=== PATIENT | female | born 1990 | race Caucasian/White ===

== ENCOUNTER 2021-07-26 16:58 | Inpatient (IN) | payer OTHER, BC ==
[~2021-07-26] VITALS: Ht 172.7 cm; Wt 101.2 kg
[2021-07-26 17:54] LABS: RED BLOOD COUNT 3.95 M/UL (4.00-5.10); WHITE BLOOD COUNT 9.8 K/UL (4.5-11.0)
[2021-07-26] MEDS ORDERED: OMEPRAZOLE40 MG PO (17:56)
[2021-07-28] MEDS ORDERED: DOCUSATE SODIU100 MG PO (08:13)
[2021-07-28] MEDS ORDERED: IBUPROFEN800 MG PO (08:13)
== END 2021-07-29 14:52 | disposition home or self-care (01) | DRG 807 ==
LOC: GENOP 16:58 → OB 17:14
PROVIDERS: ADMIT Obstetrics & Gynecology
PROC: 4A1HXCZ Monitoring of Products of Conception, Cardiac Rate, External Approach (ICD-10-PCS; 2021-07-26)
PROC: 10E0XZZ Delivery of Products of Conception, External Approach (ICD-10-PCS; principal; 2021-07-28)
PROC: 0KQM0ZZ Repair Perineum Muscle, Open Approach (ICD-10-PCS; 2021-07-28)
PROC: 10907ZC Drainage of Amniotic Fluid, Therapeutic from Products of Conception, Via Natural or Artificial Opening (ICD-10-PCS; 2021-07-28)
DX: O13.4 Gestational [pregnancy-induced] hypertension without significant proteinuria, complicating childbirth (principal); Z37.0 Single live birth; Z3A.39 39 weeks gestation of pregnancy; O70.1 Second degree perineal laceration during delivery
CPT/HCPCS: 51702; 81001; 82800; 85014; 85018; 85025; 90715; C9113; J0595; J2405; J2590; J7120; U0003